=== PATIENT | female | born 1985 | race African-American/Black ===

== ENCOUNTER → 2016-10-03 | Outpatient (CLI) | payer OTHER ==
--- NOTE | 2016-10-03 10:51 | RAD ---
Indication: Pelvic cramping. Transabdominal and transvaginal pelvic sonography was performed. The uterus measures 9.8 x 4.8 x 4.4 cm. No myometrial mass is identified. The endometrium appears thin. There is an IUD centered within the endometrium. The right ovary measures 3.0 x 1.8 x 2.9 cm and contains a 1.7cm cyst. The left ovary measures 2.9 x 2.0 x 1.8 cm and contains a 1.4 cm cyst. There is blood flow to both ovaries. No adnexal mass or free fluid is seen. Impression: Small bilateral ovarian cysts. IUD is well centered in the endometrial canal. No acute feature is detected.
--- NOTE | 2016-10-03 10:58 | RAD ---
Exam performed: Complete abdominal sonogram. Indication:Abdominal and pelvic cramping for one month Date of exam: 10/03/16 Technique:Real time mcmahon scale imaging of the abdomen is performed and images are obtained. Findings : The liver is normal in size and echogenicity. It measures 15.1 cm in length. No intra- or extrahepatic biliary dilatation is present. The common duct measures 3.5 mm . The gallbladder appears normal. The visualized portions of the pancreas are unremarkable. The spleen is normal in size and measures 5.1 x 7.4 cm. Both kidneys are unremarkable without evidence for hydronephrosis. Right kidney measures 10.2 x 5.8 x 5.5 and the left kidney measures 11.1 x 5.3 x 5.2. The inferior vena cava and aorta appear normal. Impression: 1. Normal abdominal ultrasound.
== END | disposition home or self-care (01) ==
LOC: US 09:03
PROVIDERS: ATTEND Nurse Practitioner Adult Health
DX: N83.201 Unspecified ovarian cyst, right side (principal); N83.202 Unspecified ovarian cyst, left side; Z97.5 Presence of (intrauterine) contraceptive device
CPT/HCPCS: 76700; 76830; 76856

== ENCOUNTER → 2020-11-15 | Outpatient (CLI) | payer BC ==
--- NOTE | 2020-11-15 15:25 | RAD ---
EXAMINATION: US THYROID, 11/15/2020 10:52 AM CLINICAL INDICATION: Disorder of thyroid TECHNIQUE: Grayscale and color Doppler sonographic images of the thyroid are submitted for interpreta tion. COMPARISON: None. FINDINGS: The right thyroid lobe measures 5.5 x 2.0 x 1.7 cm. The left thyroid lobe measures 5.7 x 1 .8 x 1.4 cm. Thyroid isthmus measures 5 mm. There is homogeneous thyroid parenchyma. In the superior left thyroid lobe there is a cystic nodule measuring 5 x 5 x 4 mm. This is hypoechoic and wider than tall with smooth margins and margins and no echogenic foci, TI RADS 2-not suspicious. There are no suspicious thyroid nodules. IMPRESSION: No suspicious thyroid nodules. Electronically signed by: Orly Ambriz MD (11/15/2020 3:23 PM) [id number]
== END ==
LOC: US 10:44
PROVIDERS: ATTEND Nurse Practitioner Adult Health
DX: E07.9 Disorder of thyroid, unspecified (principal)
CPT/HCPCS: 76536